=== PATIENT | female | born 1950 | race African-American/Black ===

== ENCOUNTER 2021-04-18 14:19 | Inpatient (IN) | payer MEDICARE, MEDICAID ==
[~2021-04-18] VITALS: Ht 165.1 cm; Wt 72.6 kg
[~2021-04-18 14:19] MED LIST: ASA; ATENPOW10; CLOPIDOGREL; LANTUS; ROBAXIN; SINGULAIR
[2021-04-18 15:09] LABS: Basophils # (auto) 0 10 ^3/uL (0-0.2); Basophils % (auto) 0.3 % (0.0-2.0); Eosinophils # (auto) 0.7 10 ^3/uL (0-0.8); Hemoglobin 11.1 g/dL (12.2-16.2); Neutrophils # (auto) 4.6 10 ^3/uL (1.6-8.6)
[2021-04-18 15:11] LABS: Eosinophils % (auto) 9.1 % (0.0-7.0); Hematocrit 34.4 % (36.0-46.0); Lymphocytes # (auto) 1.7 10 ^3/uL (0.4-5.4); Mean Corpuscular Hemoglobin 26.6 pg (28.0-32.0); Mean Corpuscular Hgb Conc. 32.4 g/dL (32.0-36.0); Mean Corpuscular Volume 82.1 fL (80.0-100.0); Monocytes # (auto) 0.4 10 ^3/uL (0-1.3); Monocytes % (auto) 5.6 % (0.0-12.0); Red Blood Cells 4.19 10^6/uL (4.0-5.20); Red Cell Distribution Width 13.7 % (11.8-14.3); White Blood Cell 7.4 10^3/uL (4.4-10.8)
[2021-04-18 15:26] LABS: Alanine Aminotransferase 19 U/L (13-56); Albumin 2.6 g/dL (3.4-5.0); Anion Gap 8 (5-15); BUN/Creatinine Ratio 13.7; Blood Urea Nitrogen 17 mg/dL (7-18); Calcium 8.3 mg/dL (8.5-10.1); Carbon Dioxide 20 mmol/L (21-32); Chloride 112 mmol/L (98-107); GFR African American 55 mL/min; GFR Non-African American 45 mL/min; Glucose 260 mg/dL (74-106); Potassium 4.3 mmol/L (3.5-5.1); Sodium 140 mmol/L (136-145)
[2021-04-18 15:28] LABS: INR 1.01 (0.9-1.15); Partial Thromboplastin Time 25.9 sec (23.6-33.0)
[2021-04-18 15:31] LABS: Alkaline Phosphatase 108 U/L (45-117); Aspartate Aminotransferase 14 U/L (15-37); Bilirubin, Total 0.2 mg/dL (0.2-1.0); Total Protein 6.8 g/dL (6.4-8.2)
[2021-04-18] MEDS ORDERED: ALUM & MAG HYDROX-SIMETH LIQ(MAALOX) 30 ML PO PRN (16:45)
[2021-04-18] MEDS ORDERED: PANTOPRAZOLE 40 MG/10 ML VIAL INJ IV ONE (16:45)
[2021-04-18] MEDS ORDERED: SUCRALFATE 1 GM/10 ML ORAL SUSP PO ONE (16:45)
[2021-04-18] MEDS ORDERED: ONDANSETRON HCL 4 MG/2 ML VIAL IV PRN (16:45)
[2021-04-18] MEDS ORDERED: NITROGLYCERIN 0.4 MG SL TAB SL PRN (16:45)
[2021-04-18] MEDS ORDERED: ACETAMINOPHEN 325 MG TAB PO PRN (16:45)
[2021-04-18] MEDS ORDERED: MORPHINE SULFATE INJECTION 2 MG/ML SYRG IV PRN ×2 (16:45)
[2021-04-18] MEDS ORDERED: DEXTROSE (50%) 50ML SYRG IV PRN (16:45)
[2021-04-18] MEDS: SUCRALFATE 1 GM/10 ML ORAL SUSP PO SCH ×2 (18:18→23:32)
[2021-04-18 22:09] LABS: Urine Bacteria FEW /hpf (None Seen); Urine Blood Negative /uL (Negative); Urine Hyaline Cast FEW /lpf (0 - 2); Urine Specific Gravity 1.011 (1.001-1.035); Urine WBC 2 /hpf (0 - 5)
[2021-04-18] MEDS: PANTOPRAZOLE 40 MG/10 ML VIAL INJ IV SCH (23:32)
[2021-04-18] MEDS: SODIUM CHLOR 0.9% PF (SALINE LOCK) 10ML VIAL/SYR IV SCH (23:33)
[2021-04-18] MEDS: HYDROcodone-ACET 5/325MG TAB PO PRN (23:33)
[2021-04-18] MEDS: ATORVASTATIN 20 MG TAB PO SCH (23:33)
[2021-04-18] MEDS: ACCU-CHEK COMFORT CURVE STRIP VI SCH (23:34)
[2021-04-19] VITALS (7 sets, daily range): BP systolic 94–166; BP diastolic 46–94
[2021-04-19] MEDS: InsuLIN REG 1unit/0.01ml Soln (100units/ml) SC SCH ×4 (06:00→18:00)
[2021-04-19 06:18] LABS: Basophils # (auto) 0 10 ^3/uL (0-0.2); Basophils % (auto) 0.4 % (0.0-2.0); Eosinophils # (auto) 0.7 10 ^3/uL (0-0.8); Eosinophils % (auto) 11.8 % (0.0-7.0); Hematocrit 34.1 % (36.0-46.0); Hemoglobin 11.2 g/dL (12.2-16.2); Lymphocytes # (auto) 1.9 10 ^3/uL (0.4-5.4); Mean Corpuscular Hgb Conc. 32.9 g/dL (32.0-36.0); Monocytes # (auto) 0.4 10 ^3/uL (0-1.3); Monocytes % (auto) 5.8 % (0.0-12.0); Neutrophils # (auto) 3.2 10 ^3/uL (1.6-8.6); Nucleated Red Blood Cells % 0.1 %; Red Blood Cells 4.16 10^6/uL (4.0-5.20); White Blood Cell 6.3 10^3/uL (4.4-10.8)
[2021-04-19 06:30] LABS: Albumin 2.5 g/dL (3.4-5.0); Calcium 8.5 mg/dL (8.5-10.1); Potassium 3.8 mmol/L (3.5-5.1)
[2021-04-19 06:34] LABS: BUN/Creatinine Ratio 14.8; Bilirubin, Total 0.2 mg/dL (0.2-1.0); Total Protein 6.6 g/dL (6.4-8.2)
[2021-04-19] MEDS: SUCRALFATE 1 GM/10 ML ORAL SUSP PO SCH ×4 (07:00→21:30)
[2021-04-19] MEDS: ACCU-CHEK COMFORT CURVE STRIP VI SCH ×3 (07:05→16:58)
[2021-04-19] MEDS: SODIUM CHLOR 0.9% PF (SALINE LOCK) 10ML VIAL/SYR IV SCH ×3 (07:05→21:30)
[2021-04-19] MEDS: HYDROcodone-ACET 5/325MG TAB PO PRN ×2 (08:47→21:29)
[2021-04-19] MEDS: ATENOLOL 50 MG TAB PO SCH ×2 (10:00→21:31)
[2021-04-19] MEDS: PANTOPRAZOLE 40 MG/10 ML VIAL INJ IV SCH ×2 (10:00→21:29)
[2021-04-19] MEDS: ENOXAPARIN SOD 60 MG/0.6 ML SYRINGE SC SCH ×2 (10:00→21:30)
[2021-04-19] MEDS: MONTELUKAST SODIUM 10 MG TAB PO SCH ×2 (10:00→21:30)
[2021-04-19] MEDS: LISINOPRIL 10 MG TAB PO SCH ×2 (10:00→21:31)
[2021-04-19] MEDS ORDERED: SODIUM CHLORIDE LOCK 10 ML ONE (12:02)
[2021-04-19] MEDS ORDERED: LIDOCAINE VISCOUS 2% 15ML UD ONE (12:02)
[2021-04-19] MEDS ORDERED: MIDAZOLAM HCL 5 MG/ML-1ML VIAL ONE (12:03)
[2021-04-19] MEDS ORDERED: fentaNYL CITRATE 100 MCG/2 ML VL ONE (12:03)
[2021-04-19] MEDS ORDERED: diphenhdrAMINE HCL 50 MG/1 ML VL ONE (12:03)
[2021-04-19] MEDS: ATORVASTATIN 20 MG TAB PO SCH (21:29)
[2021-04-20] MEDS: InsuLIN REG 1unit/0.01ml Soln (100units/ml) SC SCH ×4 (00:27→18:24)
[2021-04-20] MEDS: ACCU-CHEK COMFORT CURVE STRIP VI SCH ×4 (00:27→18:18)
[2021-04-20 05:00] VITALS: BP 125/57
[2021-04-20] MEDS: SODIUM CHLOR 0.9% PF (SALINE LOCK) 10ML VIAL/SYR IV SCH ×2 (06:16→14:00)
[2021-04-20] MEDS: SUCRALFATE 1 GM/10 ML ORAL SUSP PO SCH ×3 (06:16→18:18)
[2021-04-20 08:30] VITALS: BP 146/72
[2021-04-20 09:00] VITALS: BP 146/72
[2021-04-20] MEDS: PANTOPRAZOLE 40 MG/10 ML VIAL INJ IV SCH (09:17)
[2021-04-20] MEDS: MONTELUKAST SODIUM 10 MG TAB PO SCH (09:17)
[2021-04-20] MEDS: ATENOLOL 50 MG TAB PO SCH (09:17)
[2021-04-20] MEDS: LISINOPRIL 10 MG TAB PO SCH (09:18)
[2021-04-20] MEDS ORDERED: ESOM40CA83 PO (12:01)
[2021-04-20] MEDS ORDERED: [UNRECOGNIZED DRUG - CODE] PO (12:01)
[2021-04-20] MEDS ORDERED: GLIP5TAB12 PO (12:18)
[2021-04-20] MEDS ORDERED: IBUP800T26 PO (12:18)
[2021-04-20] MEDS ORDERED: PIOG1TAB36 PO (12:18)
[2021-04-20] MEDS ORDERED: LISI20TA28 PO (12:18)
[2021-04-20] MEDS ORDERED: ICOS1CAP PO (12:18)
[2021-04-20] MEDS ORDERED: LORA-622 PO (12:18)
[2021-04-20] MEDS ORDERED: FERR1TAB8 PO (12:18)
[2021-04-20] MEDS ORDERED: POM PO (12:18)
[2021-04-20] MEDS ORDERED: CLOP75TA70 PO (12:18)
[2021-04-20] MEDS ORDERED: MECL-111 PO (12:18)
[2021-04-20] MEDS ORDERED: GEMF-19 PO (12:18)
[2021-04-20] MEDS ORDERED: FLUT50SP NAS (12:18)
[2021-04-20] MEDS ORDERED: ASPI-318 PO (12:18)
[2021-04-20] MEDS ORDERED: CARV6.2551 PO (12:18)
[2021-04-20] MEDS ORDERED: OYST500T28 PO (12:18)
[2021-04-20] MEDS ORDERED: LATA0.0019 EACHEYE (12:18)
[2021-04-20] MEDS ORDERED: LEVEMIR SC (12:18)
[2021-04-20] MEDS ORDERED: DIP25C PO (12:18)
[2021-04-20] MEDS ORDERED: DEXL60CA4 PO (12:18)
[2021-04-20] MEDS ORDERED: MONT10TA42 PO (12:18)
[2021-04-20] MEDS ORDERED: CYAN100042 PO (12:18)
[2021-04-20 13:00] VITALS: BP_SYST 110; BP_SYST 150; BP_DIAS 63; BP_DIAS 78
[2021-04-20 16:55] VITALS: BP 150/78
[2021-04-20 17:00] VITALS: BP 153/60
[2021-04-21] MEDS ORDERED: ENOXAPARIN SOD 40 MG/0.4 ML SYRINGE SC SCH (10:00)
== END 2021-04-20 19:19 | disposition home or self-care (01) | DRG 392 ==
LOC: EDBD 14:19 → ER 14:19 → TELE 16:39 → TELE-CENTR 23:20
PROVIDERS: ADMIT Internal Medicine; ATTEND Internal Medicine
PROC: 0DB68ZX Excision of Stomach, Via Natural or Artificial Opening Endoscopic, Diagnostic (ICD-10-PCS; principal; 2021-04-19 13:18)
DX: K29.70 Gastritis, unspecified, without bleeding (principal); E44.0 Moderate protein-calorie malnutrition; R07.89 Other chest pain; I16.0 Hypertensive urgency; E11.9 Type 2 diabetes mellitus without complications; I25.10 Atherosclerotic heart disease of native coronary artery without angina pectoris; Z20.822 Contact with and (suspected) exposure to COVID-19; E78.5 Hyperlipidemia, unspecified; I11.9 Hypertensive heart disease without heart failure; E55.9 Vitamin D deficiency, unspecified; Z90.49 Acquired absence of other specified parts of digestive tract; Z88.0 Allergy status to penicillin; Z95.5 Presence of coronary angioplasty implant and graft
CPT/HCPCS: 36415; 43239; 71045; 76705; 80053; 80061; 81001; 82306; 82962; 83036; 83880; 84484; 85025; 85610; 85730; 87426; 93005; 93306; 96374; 99291; C9113; G0378; J1815; J2250

== ENCOUNTER 2022-12-07 17:02 | Emergency (ER) | payer BC, MEDICAID ==
[~2022-12-07] VITALS: Ht 152.4 cm; Wt 73.0 kg
[~2022-12-07 17:02] MED LIST changes: -ASA; +ASPI-318 PO; -ATENPOW10; +CARV6.2551 PO; +CLOP75TA70 PO; -CLOPIDOGREL; +CYAN100042 PO; +DEXL60CA4 PO; +DIP25C PO; +ESOM40CA83 PO; +FERR1TAB8 PO; +FLUT50SP NAS; +GEMF-19 PO; +GLIP5TAB12 PO; +IBUP800T26 PO; +ICOS1CAP PO; -LANTUS; +LATA0.0019 EACHEYE; +LEVEMIR SC; +LISI20TA28 PO; +LORA-622 PO; +MECL-111 PO; +MONT-8 PO; +OYST500T28 PO; +PIOG1TAB36 PO; +POM PO; -ROBAXIN; -SINGULAIR; +[UNRECOGNIZED DRUG - CODE] PO
[2022-12-07] MEDS ORDERED: HYDROcodone-ACET 10/325MG TAB PO ONE (17:45)
[2022-12-07] MEDS ORDERED: PERCOT PO (21:57)
[2022-12-07 22:44] VITALS: BP 145/68
== END 2022-12-07 22:47 | disposition home or self-care (01) ==
LOC: ER 17:02 → EDBD 17:02 → ER 22:46
DX: M54.41 Lumbago with sciatica, right side (principal); J45.909 Unspecified asthma, uncomplicated; I10 Essential (primary) hypertension; E11.9 Type 2 diabetes mellitus without complications; R42 Dizziness and giddiness; I25.10 Atherosclerotic heart disease of native coronary artery without angina pectoris; M19.90 Unspecified osteoarthritis, unspecified site; Z88.0 Allergy status to penicillin
CPT/HCPCS: 72100; 72220

== ENCOUNTER 2023-10-16 09:31 | Inpatient (IN) | payer MEDICARE, MEDICAID ==
[2023-10-08 12:41] LABS: Basophils # (auto) 0.1 10 ^3/uL (0-0.2); Basophils % (auto) 0.8 % (0.0-2.0); Eosinophils # (auto) 0.5 10 ^3/uL (0-0.8); Eosinophils % (auto) 6.6 % (0.0-7.0); Hemoglobin 11.9 g/dL (12.2-16.2); Lymphocytes # (auto) 2.3 10 ^3/uL (0.4-5.4); Lymphocytes % (auto) 28.4 % (10.0-50.0); Mean Corpuscular Hemoglobin 26.9 pg (28.0-32.0); Mean Corpuscular Hgb Conc. 32.2 g/dL (32.0-36.0); Mean Corpuscular Volume 83.8 fL (80.0-100.0); Monocytes # (auto) 0.4 10 ^3/uL (0-1.3); Monocytes % (auto) 5.2 % (0.0-12.0); Neutrophils # (auto) 4.8 10 ^3/uL (1.6-8.6); Red Blood Cells 4.41 10^6/uL (4.0-5.20); Red Cell Distribution Width 13.6 % (11.8-14.3); White Blood Cell 8.1 10^3/uL (4.4-10.8)
[2023-10-08 12:50] LABS: Urine Bacteria NONE SEEN /hpf (None Seen); Urine Blood Negative /uL (Negative); Urine Clarity Clear (Clear); Urine Color Yellow (Yellow); Urine Protein, UAD 1+ (Negative); Urine Urobilinogen Normal (Negative); Urine WBC <1 /hpf (0 - 5)
[2023-10-08 12:51] LABS: Partial Thromboplastin Time 27.4 SEC (24.5-34.5); Prothrombin Time 10.5 sec (9.3-11.8)
[2023-10-08 13:50] LABS: Alanine Aminotransferase 19 U/L (7-40); Albumin 3.7 g/dL (3.2-4.8); Alkaline Phosphatase 109 U/L (46-116); Anion Gap 7 (5-15); Aspartate Aminotransferase 18 U/L (13-40); Blood Urea Nitrogen 32 mg/dL (9-23); Calcium 8.8 mg/dL (8.5-10.1); Carbon Dioxide 24 mmol/L (20-30); Chloride 106 mmol/L (98-107); Glucose 288 mg/dL (74-106); Potassium 4.9 mmol/L (3.5-5.1); Sodium 137 mmol/L (136-145)
[2023-10-08 13:51] LABS: Bilirubin, Total 0.6 mg/dL (0.2-1.0); Total Protein 6.7 g/dL (5.7-8.2)
[~2023-10-16] VITALS: Ht 152.4 cm; Wt 74.8 kg
[~2023-10-16 09:31] MED LIST changes: -ASPI-318 PO; +ASPI-764 PO; -DIP25C PO; +DIPH25CA51 PO; -GEMF-19 PO; +GEMF-66 PO; +IBUP-1455 PO; -IBUP800T26 PO; -LATA0.0019 EACHEYE; +LATA0.008 EACHEYE; -LISI20TA28 PO; +LISI20TA56 PO; -MECL-111 PO; +MECL-126 PO; +PERCOT PO
[2023-10-16] MEDS: GABAPENTIN 400 MG CAP ONE (11:25)
[2023-10-16] MEDS: oxyCODONE ER 20 MG TAB PO ONE ×2 (11:25→23:28)
[2023-10-16] MEDS: ACETAMINOPHEN IV 1000 MG/100ML (10MG/ML) IV ONE (11:25)
[2023-10-16] MEDS ORDERED: ONDANSETRON HCL 4 MG/2 ML VIAL ONE (11:34)
[2023-10-16] MEDS ORDERED: PROPOFOL 10 MG/ML 20 ML IV ONE ×2 (11:35)
[2023-10-16] MEDS ORDERED: LIDOCAINE 1% INJ PF 5ML AMP ONE (11:35)
[2023-10-16] MEDS ORDERED: DexAMETHasone SOD PHOS 10MG/1ML VIAL INJ ONE (11:35)
[2023-10-16] MEDS ORDERED: GLYCOPYRROLATE 0.2 MG/ML 1ML VIAL ONE (11:35)
[2023-10-16] MEDS ORDERED: PHENYLEPHRINE HCL 10 MG/ML VL ONE (11:47)
[2023-10-16] MEDS ORDERED: SODIUM CHLORIDE LOCK 10 ML ONE (11:47)
[2023-10-16] MEDS ORDERED: SUGAMMADEX 200mg/2ml Vial (100MG/ML) IV ONE (12:10)
[2023-10-16 12:32] VITALS: O2SAT 100
[2023-10-16] MEDS ORDERED: GABAPENTIN 400 MG CAP PO ONE (12:45)
[2023-10-16] MEDS ORDERED: NITROGLYCERIN 0.4 MG SL TAB SL PRN (13:45)
[2023-10-16] MEDS ORDERED: MORPHINE SULFATE INJ 2 MG/ml SYRG IV PRN (13:45)
[2023-10-16 15:30] VITALS: BP 154/81; PULSE 68; RESP 16; TEMP 98.3; O2SAT 99
[2023-10-16] MEDS ORDERED: DEXTROSE (50%) 50ML SYRG IV PRN ×2 (15:30→23:15)
[2023-10-16] MEDS ORDERED: ONDANSETRON HCL 4 MG/2 ML VIAL IV PRN (15:30)
[2023-10-16 16:00] VITALS: PULSE 81; RESP 18; O2SAT 96
[2023-10-16 17:00] VITALS: BP 156/58; PULSE 60; RESP 18; TEMP 97.8; O2SAT 100
[2023-10-16] MEDS: ACCU-CHEK COMFORT CURVE STRIP VI SCH (17:35)
[2023-10-16] MEDS: InsuLIN REG 1unit/0.01ml Soln (100units/ml) SC SCH (18:22)
[2023-10-16 20:00] VITALS: PULSE 74
[2023-10-16] MEDS: RIVAROXABAN 2.5 MG TAB PO SCH (21:43)
[2023-10-16] MEDS: MONTELUKAST SODIUM 10 MG TAB PO SCH (21:43)
[2023-10-16] MEDS: ATORVASTATIN 20 MG TAB PO SCH (21:43)
[2023-10-16] MEDS: OXYCODONE W/ ACETAMINOPHEN 5/325MG TABLET PO PRN (21:44)
[2023-10-16] MEDS: SOD CHL 0.45% 1,000 ML IV SCH (21:49)
[2023-10-16] MEDS: ATENOLOL 25 MG TAB PO ONE (21:50)
[2023-10-16 22:00] VITALS: BP 155/53; PULSE 66; RESP 16; TEMP 97.8; O2SAT 97
[2023-10-16] MEDS: VANCOMYCIN HCL 1000 MG VL ONE (23:26)
[2023-10-16] MEDS: LIDOCAINE W/ EPINEPHRINE 2% INJ 20ML VIAL ONE (23:27)
[2023-10-16] MEDS: LIDOCAINE 4MG/ML IV SOLN 500 ML IV ONE (23:27)
[2023-10-16] MEDS: ACETAMINOPHEN IV 100 ML IV ONE (23:27)
[2023-10-16] MEDS: TRANEXAMIC ACID 10 ML ONE (23:28)
[2023-10-17] VITALS (7 sets, daily range): BP systolic 129–156; BP diastolic 39–57; PULSE 48–65; RESP 17–20; TEMP 97.9–98; O2SAT 94–97
[2023-10-17] MEDS: ACCU-CHEK COMFORT CURVE STRIP VI SCH (00:10)
[2023-10-17] MEDS: InsuLIN REG 1unit/0.01ml Soln (100units/ml) SC SCH (00:15)
[2023-10-17 05:47] LABS: Basophils # (auto) 0 10 ^3/uL (0-0.2); Eosinophils # (auto) 0 10 ^3/uL (0-0.8); Hemoglobin 10.1 g/dL (12.2-16.2); Lymphocytes # (auto) 1.7 10 ^3/uL (0.4-5.4); Mean Corpuscular Hemoglobin 26.5 pg (28.0-32.0); Monocytes # (auto) 0.5 10 ^3/uL (0-1.3)
[2023-10-17 05:50] LABS: Basophils % (auto) 0.2 % (0.0-2.0); Eosinophils % (auto) 0.1 % (0.0-7.0); Lymphocytes % (auto) 18.5 % (10.0-50.0); Mean Corpuscular Hgb Conc. 31.7 g/dL (32.0-36.0); Mean Corpuscular Volume 83.8 fL (80.0-100.0); Monocytes % (auto) 5.4 % (0.0-12.0); Neutrophils # (auto) 6.8 10 ^3/uL (1.6-8.6); Neutrophils % (auto) 75.8 % (37.0-80.0); Red Blood Cells 3.81 10^6/uL (4.0-5.20); Red Cell Distribution Width 13.8 % (11.8-14.3); White Blood Cell 8.9 10^3/uL (4.4-10.8)
[2023-10-17 06:10] LABS: Alanine Aminotransferase 17 U/L (7-40); Alkaline Phosphatase 83 U/L (46-116); Anion Gap 8 (5-15); Blood Urea Nitrogen 30 mg/dL (9-23); Calcium 8.9 mg/dL (8.7-10.4); Carbon Dioxide 21 mmol/L (20-30); Chloride 106 mmol/L (98-107); Glucose 175 mg/dL (74-106); Potassium 5.3 mmol/L (3.5-5.1); Sodium 135 mmol/L (136-145)
[2023-10-17 06:11] LABS: Albumin 3.2 g/dL (3.2-4.8); Aspartate Aminotransferase 16 U/L (13-40); Bilirubin, Total 0.5 mg/dL (0.2-1.0); Total Protein 6.2 g/dL (5.7-8.2)
[2023-10-17] MEDS: GABAPENTIN 100 MG CAP PO SCH (10:23)
[2023-10-17] MEDS: ASPirin 81 mg TAB PO SCH (10:23)
[2023-10-17] MEDS: CLOPIDOGREL BISULFATE 75 MG TAB PO SCH (10:23)
[2023-10-17] MEDS: ATENOLOL 25 MG TAB PO SCH (10:24)
[2023-10-17] MEDS: SODIUM ZIRCONIUM CYCL 10 GM PAK PO ONE (12:29)
[2023-10-17] MEDS: THROAT LOZENGES(CEPASTAT) MT PRN (14:45)
[2023-10-17] MEDS: SODIUM CHLORIDE 0.9% 1,000 ML IV SCH (17:09)
[2023-10-18] VITALS (8 sets, daily range): BP systolic 106–158; BP diastolic 53–83; PULSE 50–100; RESP 18–20; TEMP 97.6–98.8; O2SAT 92–97
[2023-10-18 07:05] LABS: Chloride 113 mmol/L (98-107); Potassium 4.3 mmol/L (3.5-5.1); Sodium 142 mmol/L (136-145)
[2023-10-18 07:06] LABS: Anion Gap 6 (5-15); Calcium 8.3 mg/dL (8.5-10.1); Carbon Dioxide 23 mmol/L (20-30)
[2023-10-18 07:11] LABS: BUN/Creatinine Ratio 19.4 (10.0-20.0); Blood Urea Nitrogen 33 mg/dL (9-23); Glucose 82 mg/dL (74-106)
[2023-10-18] MEDS ORDERED: ATOR20TA PO (12:18)
[2023-10-18] MEDS ORDERED: DAPA1TAB4 PO (12:18)
[2023-10-18] MEDS ORDERED: AMLO1TAB22 PO (12:18)
[2023-10-18] MEDS ORDERED: OXY10CRT PO (12:18)
[2023-10-18] MEDS: LACTULOSE 20Gm/30ML SOLN PO ONE (16:53)
[2023-10-18] MEDS: DOCUSATE SOD 100 MG CAP PO ONE (16:53)
[2023-10-19] VITALS (15 sets, daily range): BP systolic 119–190; BP diastolic 37–99; PULSE 49–76; RESP 14–65; TEMP 98–98.6; O2SAT 90–100
[2023-10-19 06:24] LABS: Anion Gap 9 (5-15); Carbon Dioxide 21 mmol/L (20-30); Chloride 112 mmol/L (98-107); Potassium 3.7 mmol/L (3.5-5.1); Sodium 142 mmol/L (136-145)
[2023-10-19 06:25] LABS: Calcium 8.3 mg/dL (8.5-10.1)
[2023-10-19 06:30] LABS: BUN/Creatinine Ratio 16.9 (10.0-20.0); Glucose 96 mg/dL (74-106)
[2023-10-19 06:35] LABS: Blood Urea Nitrogen 23 mg/dL (9-23)
[2023-10-19 08:15] LABS: INR 1.04 (0.9-1.15); Partial Thromboplastin Time 30.9 SEC (24.5-34.5); Prothrombin Time 10.9 sec (9.3-11.8)
[2023-10-19] MEDS: ACETAMINOPHEN 325 MG TAB PO PRN (09:38)
[2023-10-19] MEDS: HEPARIN SODIUM (PORCINE) 5000 UNITS/ML 1ML VIAL ONE (11:22)
[2023-10-19] MEDS: ANGIOMAX 250 MG VIAL IV ONE (11:22)
[2023-10-19] MEDS: VERAPAMIL 2.5MG/ML INJ 2ML VIAL IV ONE (11:22)
[2023-10-19] MEDS: fentaNYL CITRATE 100 MCG/2 ML VL ONE (11:22)
[2023-10-19] MEDS: MIDAZOLAM HCL 2MG/2ML 2ml VIAL (1mg/ml) ONE (11:23)
[2023-10-19] MEDS: LIDOCAINE 2%HCL (LOCAL ANESTH.) INJ 20ML MDV ONE (11:23)
[2023-10-19] MEDS: SODIUM CHL 0.9% 50 ML ONE (11:23)
[2023-10-19] MEDS: ATROPINE SULF 1 MG/10ml SYR ONE (12:08)
[2023-10-19] MEDS: hydrALAZINE HCL 20 MG/ML VL ONE (12:11)
[2023-10-19] MEDS: IODIXANOL 320MG/ML 100ML BTL IV ONE ×2 (12:14→12:51)
[2023-10-19] MEDS: ASPirin 325 MG TAB ONE (13:01)
[2023-10-19] MEDS: TICAGRELOR 90 MG TAB ONE (13:01)
[2023-10-19] MEDS: SODIUM CHLORIDE 0.9% 1,000 ML IV SCH (13:45)
[2023-10-19] MEDS: MAALOX PLUS or MAALOX 30 ML PO ONE (17:42)
[2023-10-19] MEDS: FAMOTIDINE 20 MG TAB PO ONE (18:50)
[2023-10-19] MEDS: hydrALAZINE HCL 20 MG/ML VL IV PRN (20:26)
[2023-10-19] MEDS: TICAGRELOR 90 MG TAB PO SCH (21:57)
[2023-10-20 01:00] VITALS: BP 166/67; PULSE 87; RESP 18; TEMP 97.8; O2SAT 100
[2023-10-20 05:00] VITALS: BP_SYST 138; BP_SYST 145; BP_DIAS 48; BP_DIAS 87; PULSE 60; PULSE 89; RESP 17; RESP 18; TEMP 97.9; TEMP 98; O2SAT 100; O2SAT 98
[2023-10-20 06:28] LABS: Basophils # (auto) 0.1 10 ^3/uL (0-0.2); Basophils % (auto) 0.6 % (0.0-2.0); Eosinophils # (auto) 0.2 10 ^3/uL (0-0.8); Hematocrit 36.1 % (36.0-46.0); Hemoglobin 11.5 g/dL (12.2-16.2); Lymphocytes # (auto) 1.2 10 ^3/uL (0.4-5.4); Lymphocytes % (auto) 11.3 % (10.0-50.0); Mean Corpuscular Hgb Conc. 31.7 g/dL (32.0-36.0); Mean Corpuscular Volume 85.1 fL (80.0-100.0); Monocytes # (auto) 0.6 10 ^3/uL (0-1.3); Monocytes % (auto) 6.1 % (0.0-12.0); Neutrophils # (auto) 8.3 10 ^3/uL (1.6-8.6); Nucleated Red Blood Cells % 0.1 %; Red Blood Cells 4.24 10^6/uL (4.0-5.20); Red Cell Distribution Width 13.8 % (11.8-14.3); White Blood Cell 10.4 10^3/uL (4.4-10.8)
[2023-10-20 06:36] LABS: Alanine Aminotransferase 16 U/L (7-40); Alkaline Phosphatase 89 U/L (46-116); Anion Gap 13 (5-15); BUN/Creatinine Ratio 16.4 (10.0-20.0); Blood Urea Nitrogen 21 mg/dL (9-23); Calcium 8.5 mg/dL (8.7-10.4); Carbon Dioxide 17 mmol/L (20-30); Chloride 110 mmol/L (98-107); Potassium 3.7 mmol/L (3.5-5.1); Sodium 140 mmol/L (136-145)
[2023-10-20 06:37] LABS: Albumin 3.2 g/dL (3.2-4.8)
[2023-10-20 06:38] LABS: Aspartate Aminotransferase 23 U/L (13-40); Total Protein 6.3 g/dL (5.7-8.2)
[2023-10-20 07:02] LABS: Glucose 144 mg/dL (74-106)
[2023-10-20 08:00] VITALS: BP 194/101; PULSE 58; PULSE 78; RESP 16; RESP 20; TEMP 97.8; O2SAT 94
[2023-10-20 09:00] VITALS: PULSE 78; RESP 14; TEMP 98.6; O2SAT 99
[2023-10-20 13:00] VITALS: BP 169/83; PULSE 64; RESP 18; TEMP 98.6; O2SAT 99
[2023-10-20] MEDS: amLODIPine BESYLATE 5 MG TAB PO ONE (13:02)
[2023-10-20 17:00] VITALS: BP 153/40; PULSE 54; RESP 18; TEMP 98.4; O2SAT 100
[2023-10-20] MEDS ORDERED: CARVEDILOL 12.5 MG TAB PO SCH (22:00)
[2023-10-20] MEDS ORDERED: ATORVASTATIN 20 MG TAB PO SCH (22:00)
[2023-10-21] MEDS ORDERED: amLODIPine BESYLATE 5 MG TAB PO SCH (10:00)
== END 2023-10-20 19:50 | DRG 321 ==
LOC: SUR 09:31 → TELE 13:36 → TELE-WESTW 14:51
PROVIDERS: ADMIT Orthopaedic Surgery; ATTEND Internal Medicine
PROC: 027136Z Dilation of Coronary Artery, Two Arteries with Three Drug-eluting Intraluminal Devices, Percutaneous Approach (ICD-10-PCS; principal; 2023-10-19)
PROC: B211YZZ Fluoroscopy of Multiple Coronary Arteries using Other Contrast (ICD-10-PCS; 2023-10-19)
PROC: B215YZZ Fluoroscopy of Left Heart using Other Contrast (ICD-10-PCS; 2023-10-19)
PROC: 4A023N7 Measurement of Cardiac Sampling and Pressure, Left Heart, Percutaneous Approach (ICD-10-PCS; 2023-10-19)
DX: I25.10 Atherosclerotic heart disease of native coronary artery without angina pectoris (principal); I21.4 Non-ST elevation (NSTEMI) myocardial infarction; E87.1 Hypo-osmolality and hyponatremia; I47.20 Ventricular tachycardia, unspecified; N17.9 Acute kidney failure, unspecified; M48.062 Spinal stenosis, lumbar region with neurogenic claudication; I12.9 Hypertensive chronic kidney disease with stage 1 through stage 4 chronic kidney disease, or unspecified chronic kidney disease; I25.5 Ischemic cardiomyopathy; E87.5 Hyperkalemia; E78.1 Pure hyperglyceridemia; E11.22 Type 2 diabetes mellitus with diabetic chronic kidney disease; N18.31 Chronic kidney disease, stage 3a; E55.9 Vitamin D deficiency, unspecified; J45.909 Unspecified asthma, uncomplicated; M54.40 Lumbago with sciatica, unspecified side; Z53.9 Procedure and treatment not carried out, unspecified reason; E66.01 Morbid (severe) obesity due to excess calories; I08.3 Combined rheumatic disorders of mitral, aortic and tricuspid valves; Z88.5 Allergy status to narcotic agent; Z88.8 Allergy status to other drugs, medicaments and biological substances; Z79.899 Other long term (current) drug therapy; Z79.1 Long term (current) use of non-steroidal anti-inflammatories (NSAID); Z79.82 Long term (current) use of aspirin; Z68.32 Body mass index [BMI] 32.0-32.9, adult; Z91.018 Allergy to other foods; Z88.0 Allergy status to penicillin; Z91.013 Allergy to seafood; I25.2 Old myocardial infarction
CPT/HCPCS: 36415; 71045; 76775; 80048; 80053; 81001; 82962; 83036; 83735; 83880; 84443; 84484; 85025; 85610; 85730; 86850; 86870; 86880; 86900; 86901; 86905; 86906; 86971; 92941; 93306; 93458; 97163; 99152; C1874; C1887; C1894; G0378; J0131; J1100; J1815; J2250; J2405; J2704; Q9967